=== PATIENT | male | born 1965 | race Caucasian/White ===

== ENCOUNTER → 2023-04-18 | Outpatient (CLI) | payer OTHER ==
[~2023-04-18] MED LIST: ALBUTEROL0.09 MG/A2 INH; AUGMENTIN 875 M1 TAB PO; CLEOCIN150 MG PO; LEVOTHYROXINE125 MCG PO; MOTRIN800 MG PO; MUCINEX ER600 MG PO; NAPROSYN500 MG PO; NKHM; OMNICEF300 MG PO; PEN-VEE K500 MG PO; PREDNISONE10 MG PO; PROVENTIL HFA6.7 GM INH; ULTRAM50 MG PO; VICODIN 5/500 505 MG PO; ZITHROMAX250 MG PO
== END | disposition home or self-care (01) ==
LOC: RAD 11:37
PROVIDERS: ATTEND Internal Medicine
DX: M17.12 Unilateral primary osteoarthritis, left knee (principal); M25.462 Effusion, left knee; M25.762 Osteophyte, left knee

== ENCOUNTER 2025-05-05 13:45 | Emergency (ER) | payer MEDICAID ==
[~2025-05-05] VITALS: Ht 200.6 cm; Wt 103.1 kg
[2025-05-05] MEDS ORDERED: Amoxicillin/Clavulanate Pota 875 MG TAB PO ONE (13:50)
[2025-05-05] MEDS ORDERED: AMOX-CLAV 875-1 EACH PO (13:54)
[2025-05-05] MEDS ORDERED: Rabies Vaccine 1 ML VIAL IM ONE (14:05)
[2025-05-05] MEDS ORDERED: Tdap Vaccine 0.5 ML SYR (Adult Vaccine) IM ONE (14:05)
[2025-05-05] MEDS ORDERED: RABIES IMMUNE GLOBULIN U RABIES IMMUNE GLOBULIN U IM ONE (14:10)
== END 2025-05-05 14:41 | disposition home or self-care (01) ==
LOC: ED 13:45
DX: S61.451A Open bite of right hand, initial encounter (principal); E11.9 Type 2 diabetes mellitus without complications; E78.00 Pure hypercholesterolemia, unspecified; Z98.890 Other specified postprocedural states; W54.0XXA Bitten by dog, initial encounter; Y93.89 Activity, other specified; Y92.89 Other specified places as the place of occurrence of the external cause; Y99.8 Other external cause status